=== PATIENT | male | born 1985 | race Caucasian/White ===

== ENCOUNTER 2019-11-27 20:15 | Observation (INO) ==
[2019-11-27] MEDS ORDERED: Naloxone 0.4 MG/ML INJ IVP PRN (22:56)
[2019-11-27] MEDS ORDERED: Acetaminophen 325 MG TABLET PO PRN (22:56)
[2019-11-27] MEDS ORDERED: Ondansetron 4 MG/2 ML VIAL IVP PRN (22:56)
[2019-11-27] MEDS: 0.9 % Sodium Chloride 1,000 ML IVC SCH (23:28)
[2019-11-28] MEDS: Morphine Sulfate 2 MG/ML SYRINGE IVP PRN ×3 (00:06→15:20)
[2019-11-28 00:41] LABS: Bilirubin,Urine Negative (Negative); Blood,Urine Large (Negative); Clarity,Urine Clear (Clear); Color,Urine Yellow (Yellow); Glucose,Urine (UA) Normal (Normal); Ketones,Urine Negative (Negative); Leukocyte Esterase,Urine Negative (Negative); Mucus,Urine Few per lpf (None-Few); Nitrite,Urine Negative (Negative); Protein,Urine 30 mg/dL (Neg-Trace); RBC,Urine TNTC per hpf (0-3); Specific Gravity,Urine 1.023 (1.010-1.025); Urobilinogen,Urine Normal (Normal)
[2019-11-28 00:52] LABS: Basophils % 0.3 %; Eosinophils % 0.2 %; Hematocrit 41.5 % (37.5-50.1); Immature Granulocytes % 0.3 % (0-4); Lymphocytes # 2.4 K/mcL (0.6-4.6); Lymphocytes % 15.8 %; Mean Corpuscular HGB Conc 31.3 g/dL (31.6-35.5); Mean Corpuscular Hemoglobin 25.4 pg (28.0-33.3); Mean Corpuscular Volume 81.2 fL (83.0-100.0); Mean Platelet Volume 12.8 fL (9.4-12.4); Monocytes # 0.7 K/mcL (0.0-1.3); Monocytes % 4.7 %; Neutrophils # 11.8 K/mcL (1.6-8.9); Platelet Count 227 K/mcL (140-400); Red Blood Count 5.11 M/mcL (4.19-5.50); Red Cell Distribution Width 14.2 % (11.5-14.5); Segmented Neutrophils % 78.7 %
[2019-11-28 00:57] LABS: INR 1.1; Prothrombin Time 12.3 Seconds (9.4-12.1)
[2019-11-28 01:12] LABS: BUN/Creatinine Ratio 12 (6-26); Blood Urea Nitrogen 12 mg/dL (6-20); Calcium 8.6 mg/dL (8.6-10.3); Carbon Dioxide 23 mEq/L (23-29); Chloride 106 mEq/L (98-107); Chol/HDL Ratio 2.4 (0-4.9); Cholesterol 88 mg/dL (< 200); Glucose 123 mg/dL (70-105); HDL Cholesterol 36 mg/dL (40-59); LDL Cholesterol,Calculated 40 mg/dL (< 100); Magnesium 1.7 mg/dL (1.6-2.6); Osmolality,Calculated 289 (280-300); Phosphorous 4.5 mg/dL (2.7-4.5); Sodium 139 mEq/L (136-145); Triglycerides 61 mg/dL (< 150); eGFR For African Americans > 60 (> 60); eGFR For Non-African Americans > 60 (> 60)
[2019-11-28 06:51] LABS: Estimated Average Glucose 146 mg/dl; Hemoglobin A1C 6.7 %
[2019-11-28] MEDS: 0.9 % Sodium Chloride 1,000 ML IVC SCH (09:03)
[2019-11-28] MEDS ORDERED: *HR* Midazolam HCl 2 MG/2 ML VIAL ONE (12:21)
[2019-11-28] MEDS ORDERED: *HR* FentaNYL (PF) 100 MCG/2 ML VIAL ONE (12:21)
[2019-11-28] MEDS ORDERED: *HR* Propofol 200 MG/20 ML VIAL IVP ONE (12:22)
[2019-11-28] MEDS ORDERED: Ondansetron 4 MG/2 ML VIAL ONE (12:24)
[2019-11-28] MEDS ORDERED: Dexamethasone 4 MG/ML VIAL ONE (12:24)
[2019-11-28] MEDS ORDERED: Lidocaine -MPF 2% 2 ML VIAL ONE (12:24)
[2019-11-28] MEDS ORDERED: Acetaminophen IV 1,000 MG/100 ML BAG ONE (12:53)
[2019-11-28] MEDS ORDERED: Famotidine 20 MG/2 ML VIAL ONE (12:53)
[2019-11-28] MEDS ORDERED: Isovue-300 50ML VIAL ONE (13:41)
[2019-11-28] MEDS ORDERED: ceFAZolin 2,000 MG in Water for inj. (sterile) 20 ML IVP ONE (13:45)
[2019-11-28 17:43] VITALS: BP 126/71
== END 2019-11-28 17:43 | disposition home or self-care (01) ==
LOC: 3ANU → SUATTDRO 22:43
PROVIDERS: ADMIT Student in an Organized Health Care Education/Training Program; ATTEND Student in an Organized Health Care Education/Training Program